=== PATIENT | male | born 1995 | race Two or more races ===

== ENCOUNTER 2025-03-26 13:52 | Inpatient (IN) ==
[2025-03-26] MEDS: TICAGRELOR 90 MG TAB ONE (14:17)
[2025-03-26] MEDS: HEPARIN (PORCINE) 1000 UNIT/ML 10 ML (CATH LAB USE ONLY) ONE (14:18)
--- NOTE | 2025-03-26 14:18 | Emergency Department Note ---
Impression & Plan ST elevation, Syncope ED Provider Note NAME: CHAD [id number] YILIZ AGE: 29 SEX: M : 1995 ARRIVES VIA: Ambulance INFORMANT: Patient ED PROVIDER(S): Ren Nunes MD CHIEF COMPLAINT: Syncope, ST elevation, heart alert PLAN: Disposition: Admit MEDICAL DECISION MAKING: The patient is a 29-year-old Hong Konger gentleman, in custody at [facility] who presents to the emergency department via EMS as a heart alert in the setting of having a episode of syncope when he was playing football and had an episode of syncope with exertion which was not related to physical contact/trauma. Patient was brought to the [facility] and was noted to be pale and diaphoretic. EKG was performed and demonstrated ST elevations in V2 and V3. Following my discussion with EMS crew on medical command heart alert was activated given ST elevations on EKG and syncope and diaphoresis which may reflect chest pain equivalent as the patient did not report chest pain. Patient was given full dose aspirin prior to arrival. No prior medical history per report. Upon arrival to the emergency department the patient is pale, diaphoretic, fatigued appearing with heart in the 90s and blood pressure 140s/100s vital signs otherwise stable. History obtained via [employer] nursery helper. Patient denies chest pain at this time nor around when his episode of fainting occurred. EKG demonstrates ST elevation in leads V2-V3. Chest x-ray negative for acute cardiopulmonary process per my preliminary independent interpretation. WBC and platelets within normal limits. H/H13.8/40.2 without prior for comparison. Chemistry without metabolic acidosis. Electrolytes and LFTs unremarkable. Initial high-sensitivity troponin 10.3, within normal limits. BNP within normal limits. Lipase is normal. TSH within normal limits. Of note, we have a thorough discussion with the patient using iPad Hong [place]er nursery helper. Understandably the patient was initially unclear as to what the concern was and what the plan would be. We explained in detail with the concerns regarding his EKG and the concern for AL. He initially had declined proceeding with heart catheterization as he indicated he wanted to speak to his family. However per guards the [facility] policy was that outside contact was not permitted. While guards made effort to clarify this and see if exception could be made given the circumstances we discussed further with the patient risks of delaying the Adventure Education Teacher procedure. Ultimately the patient did agree to proceed and was able to express in his own words understanding of the concern and procedure to be performed. 5000 units of IV heparin and 180 mg of ticagrelor administered. Dr. Boyle, interventional cardiology, to assess the patient in the Adventure Education Teacher. Case was discussed with Dr. Oscar, [facility] admitting resident, with Dr. Shelley Leos, [facility] hospitalist. Further management per admitting team. Triage Nursing notes reviewed and agree them. Prior/external medical records reviewed Vital Signs: reviewed Differential diagnosis: Vasovagal event, dehydration, infection, hypoglycemia, electrolyte abnormalities, cardiac sources, intracerebral event, pulmonary embolism, seizure, toxicologic, neurologic, as well as other pathologies. ER treatment provided: See below. Diagnostics interpreted by me: ECG: Normal sinus rhythm, 96 bpm, no ectopy, ST elevation in leads V2-V3, question of Brugada pattern, QTc 416, QRS 86. Cardiac Monitoring: An order for continuous cardiac monitoring was placed and demonstrated normal sinus rhythm, 96 bpm, no ectopy. Laboratory studies: See below Imaging studies: See below Consultation(s): Dr. Boyle, interventional cardiology [facility] admitting resident, with Dr. Shelley Leos, [facility] hospitalist. HPI: Per MDM. ROS: See above HPI for pertinent positives & negatives. A total of 10 systems reviewed and were otherwise negative. VITALS:See Below PHYSICAL EXAMINATION: GENERAL: Awake, alert, fatigued/uncomfortable-appearing, diaphoretic in no distress HENT: Normocephalic, atraumatic. Oropharynx with dry mucous membranes and otherwise unremarkable. EYES: Normal conjunctiva. Sclera non-icteric. NECK: Supple. No nuchal rigidity. FROM. No JVD. RESPIRATORY: Clear to auscultation. CARDIAC: Regular rate, normal rhythm. No murmurs, rubs or gallops. Extremities warm and well perfused. Pulses equal. ABDOMEN: Soft, non-distended. No tenderness to palpation. No rebound or guarding. No masses. MUSCULOSKELETAL: Chest examination reveals no tenderness. The back is symmetrical on inspection without obvious abnormality. There is no CVA tenderness to palpation. No joint edema. LOWER EXTREMITIES: Calves are equal size bilaterally and non-tender. No edema. No discoloration. NEURO: Normal sensorium. No sensory or motor deficits noted. SKIN: No rash or jaundice noted. ED COURSE: Critical Care: I have personally spent greater than 35 minutes of critical care time in the direct management of this patient. This includes bedside care, interpretation of diagnostic studies, and testing, discussion with consultants, patient, and family members, and other required patient management activities. This 35 minutes is in excess of all separately billable procedures. Ren Nunes MD Past Med/Surg History Problem List (Updated 03/27/25 @ 02:37 by Ren Nunes MD) Syncope (Acute) ST elevation (Acute) Social History Smoking Status: Former smoker Tobacco Type: Cigarettes Smoking End Date: 2 months; Hx Alcohol Use: Yes Hx Substance Use: No Preferred Language: Hong Konger Assisted Living Director Required: Yes Beliefs That Will Affect Care: Cultural Cultural Beliefs: no pork products Current Living Situation: Other Current Living Situation Comment: Custodial[facility] Other Information That Helps Us Care for You: No Feels Safe at Home: Yes Safety Concerns: Feels Safe At This Time Assistive Devices: None Results & Data (ED) Vital Signs Vital Signs - 24 hr 03/26/25 13:53 03/26/25 13:53 03/26/25 13:59 Pulse Rate 97 H 95 H Pulse Rate [Right Finger] Pulse Rhythm [Right Finger] Pulse Strength [Right Finger] Respiratory Rate 16 Respiratory Effort / Characteristics Respiratory Depth Respiratory Pattern Blood Pressure 148/103 H Blood Pressure [Right Arm] Blood Pressure Mean 118 Blood Pressure Mean [Right Arm] Blood Pressure Position [Right Arm] Pulse Oximetry Oxygen Delivery Method Room Air Nasal Cannula Oxygen Flow Rate 2 Sepsis Recent Fever Within 48 Hours No Sepsis New/Unexplained Change in Mental Status N/A Sepsis Action Taken by Nursing No Action Required 03/26/25 14:04 03/26/25 14:21 03/26/25 15:10 Pulse Rate Pulse Rate [Right Finger] 99 H 83 Pulse Rhythm [Right Finger] Regular Pulse Strength [Right Finger] Normal Respiratory Rate 18 18 Respiratory Effort / Characteristics Non-Labored Spontaneous Non-Labored Spontaneous Respiratory Depth Normal Normal Respiratory Pattern Regular Blood Pressure Blood Pressure [Right Arm] 153/105 H 135/87 Blood Pressure Mean Blood Pressure Mean [Right Arm] 121 103 Blood Pressure Position [Right Arm] Semi-fowlers Pulse Oximetry 100 96 Oxygen Delivery Method Room Air Room Air Room Air Oxygen Flow Rate Sepsis Recent Fever Within 48 Hours Sepsis New/Unexplained Change in Mental Status Sepsis Action Taken by Nursing 03/26/25 15:15 03/26/25 15:30 03/26/25 15:45 Pulse Rate Pulse Rate [Right Finger] 84 74 73 Pulse Rhythm [Right Finger] Regular Regular Regular Pulse Strength [Right Finger] Normal Normal Normal Respiratory Rate 18 18 18 Respiratory Effort / Characteristics Non-Labored Spontaneous Non-Labored Spontaneous Non-Labored Spontaneous Respiratory Depth Normal Normal Normal Respiratory Pattern Regular Regular Regular Blood Pressure Blood Pressure [Right Arm] 131/82 120/81 117/73 Blood Pressure Mean Blood Pressure Mean [Right Arm] 98 94 87 Blood Pressure Position [Right Arm] Semi-fowlers Semi-fowlers Semi-fowlers Pulse Oximetry 95 94 93 Oxygen Delivery Method Room Air Room Air Room Air Oxygen Flow Rate Sepsis Recent Fever Within 48 Hours Sepsis New/Unexplained Change in Mental Status Sepsis Action Taken by Nursing Laboratory Data Attestation: I reviewed the patient's lab results. 03/26/25 14:11 03/26/25 14:11 Lab Results 03/26/25 03/26/25 Range/Units 14:11 14:14 WBC 8.97 (4.8-10.8) K/ul RBC 4.77 (4.70-6.10) M/uL Hgb 13.8 L (14.0-18.0) g/dl POC Hgb 13.3 L (14.0-18.0) g/dl Hct 40.2 L (42.0-52.0) % POC Hct 39 L (42-52) % MCV 84.3 (80.0-100.0) fL MCH 28.9 (25.0-34.0) pg MCHC 34.3 (32.0-36.0) g/dL RDW Std Deviation 36.9 (36.4-46.3) fL RDW Coeff of Josefina 12.1 (11.5-14.5) % Plt Count 228 (130-400) K/uL MPV 8.8 L (9.4-12.4) fL Immature Gran % (Auto) 0.3 % Neut % (Auto) 71.2 % Lymph % (Auto) 18.5 % [place] % (Auto) 8.6 % Eos % (Auto) 1.0 % Baso % (Auto) 0.4 % Neut # (Auto) 6.38 (1.40-6.50) K/uL Lymph # (Auto) 1.66 (1.20-3.40) K/uL [place] # (Auto) 0.77 H (0.11-0.59) K/uL Eos # (Auto) 0.09 (0.00-0.50) K/uL Baso # (Auto) 0.04 (0.00-0.20) K/uL Immature Gran # (Auto) 0.03 (0.01-0.20) K/uL PT 10.8 (9.0-12.0) Seconds INR 1.0 (0.9-1.1) APTT 24 (21-31) Seconds PTT Ratio 0.9 POC Sodium 141 (135-144) mmol/L Sodium 139 (136-145) mmol/L POC Potassium 3.9 (3.3-5.0) mmol/L Potassium 3.9 (3.5-5.1) mmol/L POC Chloride 105 (101-112) mmol/L Chloride 108 H (98-107) mmol/L Carbon Dioxide 25 (21-32) mmol/L POC Total CO2 22 L (24-31) mmol/L Anion Gap 6 (3-11) POC Anion Gap 18.0 (16-25) mmol/L POC BUN 13 (7-18) mg/dl BUN 13 (6-23) mg/dl Creatinine 0.98 (0.6-1.4) mg/dl POC Creatinine 1.1 (0.6-1.3) mg/dl Est Cr Clr Drug Dosing Not Reportable eGFR 106.38 BUN/Creatinine Ratio 13.3 (10-20) Glucose 81 (70-99(Fasting)) mg/dl POC Glucose (other) 82 (70-99) mg/dl Calcium 8.9 (8.6-10.3) mg/dl POC Ioniz Calcium Katelynn 1.16 (1.12-1.32) mmol/l Magnesium 1.8 (1.7-2.4) mg/dl Total Bilirubin 0.5 (0.2-1.0) mg/dl AST 20 (13-39) U/L ALT 19 (7-52) U/L Alkaline Phosphatase 49 (34-104) U/L Total Creatine Kinase 90 (30-223) U/L Troponin I High Sens 10.3 (0-20) pg/ml B-Natriuretic Peptide 25 (0-100) pg/ml Total Protein 7.2 (6.0-8.3) gm/dl Albumin 4.3 (3.4-5.0) gm/dl Globulin 2.9 (2.5-4.0) gm/dl Albumin/Globulin Ratio 1.5 (0.9-2) Lipase 18 (11-82) U/L TSH 1.447 (0.300-4.500) uIu/ml Administered Medications Discontinued Medications Atropine Sulfate (Atropine Sulfate 0.1 Mg/Ml 10ml Syr) Confirm Administered Dose 1 mg IV .STK-MED ONE Stop: 03/26/25 14:10 Last Admin: 03/26/25 14:58 Dose: Not Given Documented By: LIEN Diphenhydramine HCl (Diphenhydramine 50 Mg/Ml Vial) Confirm Administered Dose 50 mg .ROUTE .STK-MED ONE Stop: 03/26/25 14:39 Last Admin: 03/26/25 14:58 Dose: 25 mg Documented By: KATT Fentanyl Citrate (Fentanyl Citrate Pf 100 Mcg/2 Ml Vial) Confirm Administered Dose 100 mcg .ROUTE .STK-MED ONE Stop: 03/26/25 13:51 Last Increment: 03/26/25 14:56 Dose: 75 mcg Documented By: KATT Heparin Sodium (Porcine) (Heparin (Porcine) 1000 Unit/Ml 10 Ml ([employer] Teacher Use Only)) Confirm Administered Dose 10,000 units .ROUTE .STK-MED ONE Stop: 03/26/25 13:51 Last Admin: 03/26/25 14:59 Dose: Not Given Documented By: LIEN Heparin Sodium (Porcine) (Heparin Sod (Porcine) 1000 Unit/Ml) Confirm Administered Dose 1,000 units .ROUTE .STK-MED ONE Stop: 03/26/25 14:17 Last Admin: 03/26/25 17:22 Dose: Not Given Documented By: CINDY Heparin Sodium (Porcine) (Heparin Sod (Porcine) 1000 Unit/Ml) 5,000 units IV NOW ONE Stop: 03/26/25 14:16 Last Admin: 03/26/25 14:20 Dose: 5,000 units Documented By: NRB Co-signed By: PHIL Heparin Sodium/Sodium Chloride (Heparin In Nss Infusion 1000 Unit/500 Ml (2 U/Ml) Bag) Confirm Administered Dose 3,000 units IV .STK-MED ONE Stop: 03/26/25 13:51 Last Admin: 03/26/25 14:57 Dose: 3,000 units Documented By: KATT Sodium Chloride (Nss) 500 mls @ 125 mls/hr IV .Q4H CRISTOBAL Stop: 03/26/25 17:44 Last Infusion: 03/26/25 21:26 Dose: Infused Documented By: Admin: 03/26/25 17:21 Dose: 125 mls/hr Documented By: CINDY Ioversol (Optiray 350) Confirm Administered Dose 1 ml .ROUTE .STK-MED ONE Stop: 03/26/25 13:52 Last Admin: 03/26/25 14:58 Dose: 60 ml Documented By: KATT Midazolam HCl (Midazolam Hcl 1 Mg/Ml 2ml Vial) Confirm Administered Dose 2 mg .ROUTE .STK-MED ONE Stop: 03/26/25 13:50 Last Admin: 03/26/25 14:56 Dose: 3 mg Documented By: KATT Midazolam HCl (Midazolam Hcl 1 Mg/Ml 2ml Vial) Confirm Administered Dose 2 mg .ROUTE .STK-MED ONE Stop: 03/26/25 14:37 Last Admin: 03/26/25 14:58 Dose: Not Given Documented By: LIEN Nicardipine HCl (Nicardipine 2,000 Mcg/20 Ml Syr) Confirm Administered Dose 2,000 mcg .ROUTE .STK-MED ONE Stop: 03/26/25 13:52 Last Admin: 03/26/25 14:57 Dose: 2,000 mcg Documented By: KATT Nitroglycerin/Dextrose (Nitroglycerin/D5w 100mcg/Ml 20ml Syr) Confirm Administered Dose 2,000 mcg .ROUTE .STK-MED ONE Stop: 03/26/25 13:51 Last Admin: 03/26/25 14:57 Dose: 2,000 mcg Documented By: KATT Ticagrelor (Ticagrelor 90 Mg Tab) Confirm Administered Dose 180 mg .ROUTE .STK- MED ONE Stop: 03/26/25 14:16 Last Admin: 03/26/25 14:17 Dose: 180 mg Documented By: DEEPIKA Ticagrelor (Ticagrelor 90 Mg Tab) 180 mg PO ONE ONE Stop: 03/26/25 14:16 Last Admin: 03/26/25 14:23 Dose: Not Given Documented By: NRB Imaging Data Radiologist's Impression: Chest X-Ray 03/26/25 13:45 XR chest 1V portable CLINICAL HISTORY: Chest pain, nonspecific. COMPARISON STUDY: No previous studies for comparison. FINDINGS: Lung volumes are normal. Lungs are clear. There is no pneumothorax or pleural effusion. Cardiac size is normal. Mediastinal contours are normal. There is no evidence for pulmonary edema. IMPRESSION: No acute cardiopulmonary findings. ACT 112: Negative or not required by law. Electronically signed by: Tray Muller M.D. 03/26/2025 2:27 PM Discharge Plan Visit Data Chief Complaint: Heart Alert Stated Complaint: HEART ALERT ED Provider: Ren Nunes Discharge Problem: ST elevation, Syncope Patient Disposition: Admitted As Inpatient Condition: Critical Discharge Instructions Interventions: ED Discharge Assessment Last Done: 03/26/25 14:24 Discharge Problem: Syncope Qualifiers: Syncope type: unspecified Qualified Code(s): R55 - Syncope and collapse
[2025-03-26] MEDS: HEPARIN SOD (PORCINE) 1000 UNIT/ML IV ONE (14:20)
[2025-03-26 14:22] LABS: Hematocrit (blood only) 40.2 % (42.0-52.0); Hemoglobin 13.8 g/dl (14.0-18.0); Immature Granulocytes # (auto) 0.03 K/uL (0.01-0.20); Immature Granulocytes % (auto) 0.3 %; Mean Corpuscular Hemoglobin 28.9 pg (25.0-34.0); Mean Corpuscular Volume 84.3 fL (80.0-100.0); Platelet Count 228 K/uL (130-400); RDW Standard Deviation 36.9 fL (36.4-46.3); Red Blood Count 4.77 M/uL (4.70-6.10); White Blood Count 8.97 K/ul (4.8-10.8)
[2025-03-26] MEDS: TICAGRELOR 90 MG TAB PO ONE (14:23)
--- NOTE | 2025-03-26 14:28 | XRay Report ---
XR chest 1V portable CLINICAL HISTORY: Chest pain, nonspecific. COMPARISON STUDY: No previous studies for comparison. FINDINGS: Lung volumes are normal. Lungs are clear. There is no pneumothorax or pleural effusion. Car diac size is normal. Mediastinal contours are normal. There is no evidence for pulmonary edema. IMPRESSION: No acute cardiopulmonary findings. ACT 112: Negative or not required by law. Electronically signed by: Tray Muller M.D. 03/26/2025 2:27 PM
--- NOTE | 2025-03-26 14:33 | History & Physical Report ---
Date of Service March 26, 2025 Assessment & Plan (1) ST elevation: (2) Syncope: Plan Pt is a 29 yo male with no significant past med hx who presents from [facility] on 03/26 for an episode of syncope with activity and found to have ST elevations on EKG. #ST elevations #Syncopal episode - EKG in the ED consistent with EKG from facility after syncopal episode showing ST elevations, pt denies ever feeling chest pain - heart code was called; pt was taken to [facility]/26 2:30pm, no significant occlusions noted - question Brugada, given V1-3 elevations and syncopal episode - cardio consulted; pending EP evaluation - will defer starting antiarrhythmics at this time as he has been sinus rhythm since being here, pending cards - TSH wnl - echo pending VTE: low risk (Bianka score 0) ambulate as tolerated Pt is full code on admission. History of Present Illness Chief Complaint: STEMI Primary Care Provider: NO PCP Pt is a 29 yo male with no significant past med hx who presents from [facility] on 03/26 for an episode of syncope with activity and found to have ST elevations on EKG. Pt seen briefly before cath and once again after cath procedure. Norwegian voice balloon pilot used, ID code [id number]. Pt is currently detained by ICE. Pt states this started initially in December. He states on January 09 he had an episode of feelin g hot, sweaty, and like he could pass out. This happened again on February 05 and March 17. He states these episodes started in times of legal stress he has endured. He moved here with his 3 kids for a better life and has been very frustrated with the system. He states that today the episode was different. He was playing football(soccer) outside and when he went inside he started to get sweaty and hot and then passed out. No chest pain or SOB before or after. He denies any prior hx of an actual syncopal event. He denies any family hx of cardiac issues that he knows about. In the ED he was complaining of being cold and shivering but no other symptoms. After cath, he appeared more physically comfortable but he is emotionally overwhelmed. He states he would feel better if he could just talk to his family and hear his kids again. Past Med/Surg History Problem List Syncope (Acute) ST elevation (Acute) Social History Smoking Status: Former smoker Tobacco Type: Cigarettes Smoking End Date: 2 months; Hx Alcohol Use: Yes Hx Substance Use: No Preferred Language: Norwegian Yolk Spray Drier Required: Yes Beliefs That Will Affect Care: Cultural Cultural Beliefs: no pork products Current Living Situation: Other Current Living Situation Comment: Longterm-[facility] Other Information That Helps Us Care for You: No Feels Safe at Home: Yes Safety Concerns: Feels Safe At This Time Assistive Devices: None Review of Systems Review of Systems: Per HPI. Physical Exam Physical Exam: General: Alert and oriented, no acute distress, tearful HEENT: Normocephalic, moist oral mucosa, Resp: No increased resp effort, no resp distress GI: Nondistended Skin: Warm, pink, dry, Results & Data Results & Data Vital Signs (Past 12 Hours) Vital Signs Pulse Pulse Resp BP BP Pulse Ox O2 Del Method 03/26/25 14:21 99 H 18 153/105 H 100 Room Air 03/26/25 14:04 Room Air 03/26/25 13:59 95 H 03/26/25 13:53 Nasal Cannula 03/26/25 13:53 97 H 16 148/103 H Room Air O2 Flow Rate 03/26/25 14:21 03/26/25 14:04 03/26/25 13:59 03/26/25 13:53 2 03/26/25 13:53 Supervising Physician Co-Signing Physician Notes I personally examined the patient and verified romo points of history and exam, discussed case, and agree with decision making and plan documented by Dr. Oscar. Norwegian balloon pilot #[id number] utilized. Patient is 29 yr old male with no known past medical history with intermittent cardiac symptoms presenting during times of stress prior to admission. Had [facility]opal [facility] at [facility] facility today. Patient denies cardiopulmonary symptoms at present. Exam with lungs clear b/l to auscultation, regular rate and rhythm, no acute distress. VSS. Denies family history of cardiac disease. Cardiac catheterization unrevealing today. Cardiology consulted. Monitor on telemetry. Resident Activity Tracking Resident Involvement: Resident Care Provided Care Provided: Adult [facility] Medicine
[2025-03-26 14:40] LABS: Alanine Aminotransferase 19 U/L (7-52); Albumin Globulin Ratio 1.5 (0.9-2); Alkaline Phosphatase 49 U/L (34-104); Anion Gap 6 (3-11); Bilirubin,Total 0.5 mg/dl (0.2-1.0); Blood Urea Nitrogen 13 mg/dl (6-23); Calcium 8.9 mg/dl (8.6-10.3); Carbon Dioxide 25 mmol/L (21-32); Chloride 108 mmol/L (98-107); Creatine Kinase 90 U/L (30-223); Globulin 2.9 gm/dl (2.5-4.0); Glucose 81 mg/dl (70-99(Fasting)); Lipase 18 U/L (11-82); Magnesium 1.8 mg/dl (1.7-2.4); Potassium 3.9 mmol/L (3.5-5.1); Sodium 139 mmol/L (136-145); Total Protein 7.2 gm/dl (6.0-8.3)
[2025-03-26 14:56] LABS: Thyroid Stimulating Hormone 1.447 uIu/ml (0.300-4.500)
[2025-03-26] MEDS: MIDAZOLAM HCL 1 MG/ML 2ML VIAL ONE ×2 (14:56→14:58)
[2025-03-26] MEDS: niCARdipine 2,000 MCG/20 ML SYR ONE (14:57)
[2025-03-26] MEDS: NITROGLYCERIN/D5W 100MCG/ML 20ML SYR ONE (14:57)
[2025-03-26] MEDS: OPTIRAY 350 ONE (14:58)
[2025-03-26] MEDS: ATROPINE SULFATE 0.1 MG/ML 10ML SYR IV ONE (14:58)
[2025-03-26] MEDS: diphenhydrAMINE 50 MG/ML VIAL ONE (14:58)
--- NOTE | 2025-03-26 15:01 | Pre Anesthesia Assessment ---
Date of Service March 26, 2025 Pre Sedation Assessment Vital Signs Pulse Pulse Resp BP BP Pulse Ox O2 Del Method 03/26/25 14:21 99 H 18 153/105 H 100 Room Air 03/26/25 14:04 Room Air 03/26/25 13:59 95 H 03/26/25 13:53 Nasal Cannula 03/26/25 13:53 97 H 16 148/103 H Room Air O2 Flow Rate 03/26/25 14:21 03/26/25 14:04 03/26/25 13:59 03/26/25 13:53 2 03/26/25 13:53 Cardiovascular RRR, no murmur, no edema Respiratory normal respiratory effort, lungs clear to auscultation Pre-Sedation Airway Assessment Smoking Status: Unknown if ever smoked mallampati 2 ASA 4 Notes The planned sedation has been discussed with the patient. Informed Consent was obtained. I have identified the patient, determined the appropriateness of sedation and have assessed the patient immediately prior to the procedure. All medicine(s) and interventions are by my order.
--- NOTE | 2025-03-26 15:03 | Post Anesthesia Assessment ---
Date of Service March 26, 2025 Post Sedation Assessment Vital Signs Pulse Pulse Resp BP BP Pulse Ox O2 Del Method 03/26/25 14:21 99 H 18 153/105 H 100 Room Air 03/26/25 14:04 Room Air 03/26/25 13:59 95 H 03/26/25 13:53 Nasal Cannula 03/26/25 13:53 97 H 16 148/103 H Room Air O2 Flow Rate 03/26/25 14:21 03/26/25 14:04 03/26/25 13:59 03/26/25 13:53 2 03/26/25 13:53 Recovery Score Activity: Moves 4 extremities Respiration: Deep Breath/Cough Circulation: +/-20% PreAnes Value Consciousness: Fully Awake Oxygen Saturation: > 92% On Room Air Discharge Sedation Level of Care: Fast Track Phase II Post Sedation Plan On clinical assessment, the patient appears to have tolerated the sedation without complications. Patient is recovering as anticipated. Patient will continue to be monitored by nursing and may be discharged when sedation discharge criteria are met per below protocol. Upon Completions of procedure up to 15 minutes continue every 5 minute vital signs and the P.A.R. score; then discharge to a Phase I or Fast Track to Phase II per the following guidelines: * Discharge Patient to appropriate Phase II area if PAR is 8 or greater or return to pre- procedure baseline. The post - procedure orders will be as directed. * If PAR score is less than 8 or not return to pre-procedure baseline then patient will follow Phase I monitoring till PAR is reached for Phase II. The Phase I may be done in procedure room or may call to secure a Phase I area. * If naloxone or flumazenil are used for reversal, hold in Phase I for con tinued monitoring from when last reversal dose was given for a minimum of 60 minutes or longer pending the nurse and/or physician discretion of patient condition before discharge to Phase II. Please call the Sedation Physician to re-evaluate and complete post-note for discharge to Phase II area. Do NOT discharge from procedure sedation or Phase 1 until post- sedation evaluation note is complete by procedure /sedation MD Sedation Discharge Instructions to be given to the patient at discharge to home. [facility] Procedure Codes (Charges) Indication for Procedure Indication for procedure: STEMI Sedation/Anesthesia Procedure 1: Sedation/Anesthesia: 21058 Mod Sedation by the same physician;Init15 Min Child Age 5 & Up (initial 15 min. start 1436, end 1454)
[2025-03-26 15:08] LABS: INR 1.0 (0.9-1.1); Partial Thromboplastin Time 24 Seconds (21-31); Prothrombin Time 10.8 Seconds (9.0-12.0)
--- NOTE | 2025-03-26 15:26 | Cardiac Catheterization ---
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 Cardiac Status Clinical evaluation leading to the procedure CAD Presenation: STEMI Anginal Classification: CCS IV Heart Failure: No Cardiogenic Shock within 24 Hours: No Cardiac Arrest within 24 Hours: No Imaging Studies Past 6 Months: No Coronary Anatomy Dominant: Co-Dominant Left Main (% Stenosis): Normal LAD (% Stenosis): Normal D1 (% Stenosis): Normal Circumflex (% Stenosis): Normal OM1 (% Stenosis): Normal OM2 (% Stenosis): Normal OM3 (% Stenosis): Normal L PL1 (% Stenosis): Normal L PDA (% Stenosis): Normal RCA (% Stenosis): Normal R PDA (% Stenosis): Normal Left Ventricular Angiography EF (%): 65% Diagnostic Physicians Name: Les Boyle MD, PhD Closure Device Percutaneous Entry Location: Radial Closure Device: Radial Band Recommendations: Medical Therapy and/or Counseling Cardiac Cath Procedure Full Procedure Date March 26, 2025 Pre-Procedure Diagnosis Pre-Procedure Diagnosis: STEMI and Cardiothoracic Symptom (syncope) AUC Score AUC Score: 09 Post-Procedure Diagnosis Post-Procedure Diagnosis: Normal Coronary Arteries, Normal LV Systolic Function and Normal Intracardiac Pressures Procedure(s) Performed Procedure(s) Performed: Coronary Angiography, Left Heart Cath, LV Angiography and Ultrasound Guided Vascular Access Plexiglas Former Les Boyle MD, PhD Estimated Blood Loss Estimated Blood Loss: 5cc Medication(s) Medication(s): Diphenhydramine, Fentanyl, Lidocaine 1%, Nicardipine, Nitroglycerin and Versed Summary of Findings Brief description: Patient was brought to the cardiac catheterization suite where he was shaved and prepped in a sterile fashion. Sedated using IV Versed, fentanyl, and Benadryl. Soft tissues of right wrist were anesthetized using 3 mL of 1% Xylocaine. Using the ultrasound for guidance, the right radial artery was accessed and a 6 Cymro radial artery glide sheath was placed. Patient had already received anticoagulation in the emergency department. He received intra-arterial nicardipine and nitroglycerin through the radial sheath. All catheters were advanced and exchanged over a 0.035 J-tip wire. Left coronary angiography in orthogonal views with a 5 Cymro JL 4 diagnostic catheter. Right coronary angiography in orthogonal views with a 5 Cymro JR4 diagnostic catheter. Left heart cath and left ventriculogram were performed with a 5 Cymro angled pigtail catheter. Diagnostic catheters were removed. Radial artery sheath was removed. Hemostasis was obtained using a TR band. Patient was hemodynamically stable and asymptomatic. He was returned to the recovery area. This ended the case. Coronary angiography findings: KTE-wjyyt-fgezzdw vessel bifurcating into LAD and left circumflex. No angiographically evident disease. OWC-svpkm-xolkhyw and gives a large branching first diagonal and at the same level of a large septal. The mid to early distal LAD is intramyocardial in course. There is no angiographically evident disease in the LAD or its branches. LCx-this is large caliber and codominant. Travels in the AV groove gives a medium to large caliber high arising OM1. Then a very small OM 2 right before it gives a very large caliber multi branching OM 3. The AV groove circumflex then becomes smaller in caliber where it terminates in a medium caliber PDA. No angiographically evident disease in the circumflex or its branches. POI-lnwpm-baekkuh vessel which is codominant. Gives 2 large marginal branches and distally becomes a medium to large caliber PDA and there is a small posterolateral branch. No angiographically significant disease in the RCA or its branches. Left ventriculogram: LVEF-65%. No significant mitral regurgitation Normal wall motion Summary: 1. Normal epicardial coronary arteries 2. Normal LV function. No significant transaortic valve gradient or mitral regurgitation. 3. Continue workup for non-ACS etiology of ST elevations (Brugada syndrome?) Hemodynamics Rest Ao:: 105/86 mmHg Final Ao: 114/91 mmHg LV: 111/2 mmHg, LVEDP 8 mmHg Recommendations Recommendations: Medical Therapy and/or Counseling Radiation Exposure (mGy) 444 mGy, fluoroscopy time 2.5 minutes Contrast (mls) 60 Anesthesia 3 Versed, 75 fentanyl, 25 Benadryl. 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 Any exceptions are noted below. [facility] Card Cath Procedure Codes Cardiac Catheterization Procedure 1: Cardiovascular Cath Procedures: 05613 Coronaries and LHC (+/-LV) Therapeutic Services & Ancillary Procedure 1: Cardiovascular Tx and Anc Procedures: 17899 Ultrasonic Guidance Vascular Access Moderate Sedation Procedure 1: Sedation/Anesthesia: 17982 Mod Sedation by the same physician;Init15 Min Child Age 5 & Up (Initial 15 minutes. Start 1436, end 1454) PG Care Time/CCT Total # of Minutes Spent Total Time Spent with Patient: Total time spent is greater than 50% in coordination of care (as documented) at patient's floor/unit and/or counseling patient:
--- NOTE | 2025-03-26 15:43 | Electrocardiogram Report ---
Test Reason : Blood Pressure : */* mmHG Vent. Rate : 96 BPM Atrial Rate : 96 BPM P-R Int : 154 ms QRS Dur : 86 ms QT Int : 330 ms P-R-T Axes : -25 -6 -19 degrees QTcB Int : 416 ms Normal sinus rhythm possible Inferior infarct , age undetermined Incomplete right bundle branch block vs. Brugada pattern Abnormal ECG No previous ECGs available Confirmed by Billy Pedraza ([id number]) on 03/26/2025 3:43:18 PM Referred By: Confirmed By: Billy Pedraza
[2025-03-26] MEDS ORDERED: NITROGLYCERIN SL 0.4 MG/TAB TAB SL PRN (16:07)
--- NOTE | 2025-03-26 16:20 | Cardiology Consultation ---
Date of Consultation March 26, 2025 Assessment & Plan (1) ST elevation: The EKG actually appears similar to Brugada syndrome. Right bundloid appearance in the anterior septal leads plus saddleback appearance of the ST segment in V2 and V3. Normal coronaries. We need to get a better EKG when he is resting. The post-cath orders have been placed for usual diagnostic coronary angiography. We will obtain an echocardiogram to better evaluate wall motion, etc. (2) Syncope: Given the EKG appearance I would be most suspicious this represents arrhythmia from potential Brugada syndrome. If we could get information regarding family history that may be helpful. Will speak with EP regarding additional workup and management strategies given the information that we have available at this time. History of Present Illness Reason for Consultation: ST elevation [place] Syncope Attending Physician: Les Boyle MD, PhD History of Present Illness 29-year-old gentleman from [place] (speaks no Japanese) who is currently incarcerated. Had a syncopal episode without warning while he was playing soccer. No chest pain or shortness of breath. I was called to see him in the emergency department for reported ST elevation [place]. Patient was taken emergently to the cardiac catheterization suite where coronary angiography revealed normal coronaries, left heart cath demonstrating normal pressures and pressures and LVEDP with normal EF. Patient had no chest discomfort. He did have frequent ectopy with the pigtail catheter in his left heart. He is now admitted for further workup and management. There was panel installer service being used while I had him in the [facility] Services. We communicated directly about what was going on with the cath but the patient was sedated as well. I was unable to get further information from him. Patient History Social History Smoking Status: Unknown if ever smoked Feels Safe at Home: Yes Review of Systems Review of Systems: Unobtainable except as per HPI. Physical Exam Constitutional: WD/WN, vitals as above Neck: No JVD Respiratory: Clear to auscultation bilaterally. No wheezing, rhonchi, or rales. Good air movement. Cardiovascular: Regular rate and rhythm. Occasional ectopy. No gallops, rubs, or murmurs appreciated. No edema. Musculoskeletal: no cyanosis or clubbing, extremities motor strength 5/5 Neurologic: Grossly intact Results & Data Vital Signs (Past 12 Hours) Vital Signs Pulse Pulse Resp BP BP Pulse Ox O2 Del Method 03/26/25 15:45 73 18 117/73 93 Room Air 03/26/25 15:30 74 18 120/81 94 Room Air 03/26/25 15:15 84 18 131/82 95 Room Air 03/26/25 15:10 83 18 135/87 96 Room Air 03/26/25 14:21 99 H 18 153/105 H 100 Room Air 03/26/25 14:04 Room Air 03/26/25 13:59 95 H 03/26/25 13:53 Nasal Cannula 03/26/25 13:53 97 H 16 148/103 H Room Air O2 Flow Rate 03/26/25 15:45 03/26/25 15:30 03/26/25 15:15 03/26/25 15:10 03/26/25 14:21 03/26/25 14:04 03/26/25 13:59 03/26/25 13:53 2 03/26/25 13:53 PG Care Time/CCT Total # of Minutes Spent Total Time Spent with Patient: Total time spent is greater than 50% in coordination of care (as documented) at patient's floor/unit and/or counseling patient: I spent a total of 45 minutes critical care time in the initial evaluation of the patient, review of the available records including the EKGs from the transferring facility, limited discussion with the patient and the gambreler, discussion with the care team in the emergency department as well as the Director Of Volunteer Services team, formulation and implementation of a plan of care and all associated d ocumentation. This time is exclusive of the time spent for the procedure. Coding Level of Care Code 81923 CRITICAL CARE 1ST 30-74M Diagnoses ST elevation R94.31 Syncope R55 Time Spent (min) 45
[2025-03-26] MEDS: SODIUM CHLORIDE 0.9% 500 ML IV SCH (17:21)
[2025-03-26] MEDS: HEPARIN SOD (PORCINE) 1000 UNIT/ML ONE (17:22)
[2025-03-27 06:26] LABS: Hematocrit (blood only) 35.9 % (42.0-52.0); Hemoglobin 12.7 g/dl (14.0-18.0); Immature Granulocytes # (auto) 0.02 K/uL (0.01-0.20); Immature Granulocytes % (auto) 0.3 %; Mean Corpuscular Hemoglobin 30.0 pg (25.0-34.0); Mean Corpuscular Volume 84.9 fL (80.0-100.0); Platelet Count 222 K/uL (130-400); RDW Standard Deviation 36.5 fL (36.4-46.3); Red Blood Count 4.23 M/uL (4.70-6.10); White Blood Count 6.98 K/ul (4.8-10.8)
[2025-03-27 06:54] LABS: Alanine Aminotransferase 18.0 U/L (7-52); Albumin Globulin Ratio 1.4 (0.9-2); Alkaline Phosphatase 39.0 U/L (34-104); Anion Gap 5.0 (3-11); Bilirubin,Total 0.7 mg/dl (0.2-1.0); Blood Urea Nitrogen 11.0 mg/dl (6-23); Calcium 8.9 mg/dl (8.6-10.3); Carbon Dioxide 27.0 mmol/L (21-32); Chloride 107.0 mmol/L (98-107); Creatinine Clr Calc Pharmacy 118.8 ml/min; Globulin 2.7 gm/dl (2.5-4.0); Glucose 82.0 mg/dl (70-99(Fasting)); Potassium 3.8 mmol/L (3.5-5.1); Sodium 139.0 mmol/L (136-145); Total Protein 6.6 gm/dl (6.0-8.3)
--- NOTE | 2025-03-27 07:49 | Hospitalist Progress Note ---
Date of Service March 27, 2025 Assessment & Plan (1) ST elevation: (2) Syncope: Plan Pt is a 29 yo male with no significant past med hx who presents from [facility] on 03/26 for an episode of syncope with activity, found to have ST segment elevation on ECG , cardiac cath yesterday was unremarkable and is admitted for suspected Brugada Syndrome. #Syncopal episode #Brugada Syndrome - EKG in the ED consistent with EKG from facility after syncopal episode showing ST elevations, pt denies ever feeling chest pain -Cardiac Catheterization done yesterday with no remarkable findings. -Cardiology Consultation. EKG appearance similar to the Brugada syndrome. EP consultation pending - Transthoracic echocardiogram with normal findings - TSH wnl VTE: low risk (Bianka score 0) ambulate as tolerated Pt is full code on admission. Admission and Anticipated Discharge Date Admission Date: March 26, 2025 Supervising Physician Co-Signing Physician Notes I personally examined the patient and verified romo points of history and exam, discussed case, and agree with decision making and plan documented by Dr. Hi. [place] aircraft painter apprentice utilized. Patient is 29 yr old male with no known past medical history on admission for syncope. Patient considering implantation of defibrillator per cardiology recs. No events on telemetry overnight. Echocardiogram pending. Subjective Patient reports doing well. Slept well overnight. No any overnight events, Denies any palpitation, light headedness , or feeling of passing out. Denies any new concerns. Talked to the patient using aircraft painter apprentice service. Review of Systems Review of Systems: Per HPI. Physical Exam Constitutional: WD/WN, vitals as above well developed; no acute distress Eyes: PERRL, conjunctivae normal, anicteric sclerae ENMT: external ear and nose normal, oropharynx normal Ears: no hearing impairment Neck: trachea midline, no thyromegaly trachea midline No JVD Respiratory: normal respiratory effort, lungs clear to auscultation normal respiratory effort and + respiratory distress; no labored breathing and no retractions Auscultation: lungs clear to auscultation bilaterally Clear to auscultation bilaterally. No wheezing, rhonchi, or rales. Good air movement. Cardiovascular: RRR, no murmur, no edema Rate/Rhythm: regular rate and regular rhythm Regular rate and rhythm. Occasional ectopy. No gallops, rubs, or murmurs appreciated. No edema. Chest (Breasts): normal inspection/palpation of breasts Chest: normal inspection of chest Musculoskeletal: no cyanosis or clubbing, extremities motor strength 5/5 Neurologic: Grossly intact Results & Data Results & Data Vital Signs (Past 12 Hours) Vital Signs Temp Pulse Pulse Resp BP Pulse Ox O2 Del Method 03/27/25 02:42 36.6 C 68 18 119/71 97 Room Air 03/26/25 22:22 36.6 C 67 18 119/74 97 Room Air 03/26/25 21:40 65 03/26/25 21:32 36.5 C 66 18 123/76 97 Room Air (2) Syncope Syncope type: unspecified Qualified Code(s): R55 - Syncope and collapse
--- NOTE | 2025-03-27 09:58 | Electrocardiogram Report ---
Test Reason : Blood Pressure : */* mmHG Vent. Rate : 70 BPM Atrial Rate : 70 BPM P-R Int : 140 ms QRS Dur : 90 ms QT Int : 368 ms P-R-T Axes : 31 69 57 degrees QTcB Int : 397 ms Normal sinus rhythm Brugada pattern, type 1 Abnormal ECG When compared with ECG of 26-Mar-2025 13:59, Criteria for Inferior infarct are no longer Present T wave inversion no longer evident in Inferior leads Confirmed by Billy Pedraza ([id number]) on 03/27/2025 9:57:32 AM Referred By: REFERRED SELF Confirmed By: Billy Pedraza
--- NOTE | 2025-03-27 10:51 | XCELERA ---
[id number]
--- NOTE | 2025-03-27 15:13 | Cardiology Consultation ---
Date of Consultation March 27, 2025 Assessment & Plan (1) Syncope: (2) Brugada syndrome: Plan 1. Syncope: Unknown etiology. However, very little prodrome. Afterwards he did not have symptoms consistent with high vagal tone. This occurred while at rest and not with exertion. Given his EKG findings there is a concern for arrhythmia. 2. Brugada syndrome: Patient appears to have a type I Brugada pattern on his EKG. While he does not have any history of heart disease or prior syncope, the current event is concerning. No obvious recordings to document ventricular fibrillation or polymorphic ventricular tachycardia. No resuscitation performed. However, given the EKG findings, absence of structural heart disease and syncope I did recommend an ICD as secondary prevention against sudden cardiac . I do not think there is a medical therapy that is advisable. It certainly possible that his syncope was not related to malignant ventricular arrhythmia, but there is no way of knowing this. We did discuss the option for extended monitoring to document ventricular arrhythmias. This would certainly solidify the diagnosis of Brugada syndrome. However, this does put him at risk of additional malignant ventricular arrhythmias that would be untreated. I did not recommend this option. He is understandably upset by the diagnosis and an inability to discuss it with his family members. He is hoping to be in touch with them to discuss his options prior to making a decision. If he elects to defer implantation of an ICD, outpatient monitoring should be considered. Additionally he should be aware that treating fevers with antipyretics promptly helps reduce episodes of ventricular arrhythmia in the setting of Brugada pattern. History of Present Illness Reason for Consultation: Syncope Requesting Physician: [place] Attending Physician: Shelley Lacey DO History of Present Illness The patient is a 29-year-old gentleman without a known history of cardiac disease who was brought to the emergency room yesterday from a skilled nursing facility for an episode of syncope. Patient was noted prior to admission to have an EKG concerning for myocardial injury. He was brought emergently to the catheterization suite where coronary angiography was performed. This did not reveal any obstructive coronary disease. He was subsequent admitted for observation. The patient does not speak significant Swedish. Today's interview was faci litated through a proprietary translation service. Patient states that he was exercising yesterday at his facility. Afterwards he was walking normally when he did experience some symptoms of palpitations and dizziness. He then recalls some tunnel vision and apparent syncope. After the episode he reported feeling well. He did not report any specific symptoms subsequent to the episode of syncope. He cannot recall any similar episodes in the past. He generally does not have dizziness or lightheadedness. He cannot recall symptoms of palpitations. No prior history of syncope. In general he states he is an active individual with no particular medical problems. He does not seek medical attention commonly as he has not had any symptoms. We discussed any family history of heart or medical disease. He cannot recall any specific medical problems and his 2 siblings or parents. No one seems to be prone to passing out. No history of sudden . Patient History Social History Smoking Status: Former smoker Tobacco Type: Cigarettes Smoking End Date: 2 months; Hx Alcohol Use: Yes Hx Substance Use: No Preferred Language: Welsh Communication Ability: Effective Communication Tools: Language Line Licensed Retail Supervisor, Facial Expression, Physical Gestures and Other Licensed Retail Supervisor Required: Yes Beliefs That Will Affect Care: Cultural Cultural Beliefs: no pork products Current Living Situation: Other Current Living Situation Comment: [facility] Other Information That Helps Us Care for You: No Feels Safe at Home: Yes Safety Concerns: Feels Safe At This Time Assistive Devices: None Review of Systems Review of Systems: Per HPI. No current symptoms. No discomfort at the right radial access site. Physical Exam Physical Exam: The patient is alert and oriented. Mood and affect appeared normal. He answered all questions appropriately. HEENT: Pupils are equal and reactive to light and accommodation. Extraocular movements are intact. The sclerae are anicteric. Neuro: Cranial nerves intact Lungs: Clear to auscultation bilaterally. He has good air movement without use of accessory muscles. No rales wheezes or rhonchi. Cardiac: Heart demonstrates a regular rate and rhythm. Normal S1 and S2. No murmurs on examination. Pulses: The patient has palpable radial pulses bilaterally that are equal in intensity Extremities: There was no evidence of hypoperfusion. There is no cyanosis or clubbing. There is no edema. Skin: I did not appreciate any rashes on examination today. Results & Data Vital Signs (Past 12 Hours) Vital Signs Temp Pulse Resp BP Pulse Ox O2 Del Method 03/27/25 12:01 36.4 C L 82 18 144/91 H 97 Room Air 03/27/25 08:00 36.3 C L 61 18 115/71 95 Room Air Laboratory Results Abnormal Lab Results 03/26/25 03/26/25 03/27/25 14:11 17:50 06:06 WBC 6.98 RBC 4.23 L Hgb 12.7 L Hct 35.9 L MCV 84.9 MCH 30.0 MCHC 35.4 RDW Std Deviation 36.5 RDW Coeff of Josefina 12.0 Plt Count 222 MPV 8.8 L Immature Gran % (Auto) 0.3 Neut % (Auto) 62.2 Lymph % (Auto) 27.1 [place]away % (Auto) 8.6 Eos % (Auto) 1.4 Baso % (Auto) 0.4 Neut # (Auto) 4.34 Lymph # (Auto) 1.89 [place] # (Auto) 0.60 H Eos # (Auto) 0.10 Baso # (Auto) 0.03 Immature Gran # (Auto) 0.02 PT 10.8 INR 1.0 APTT 24 PTT Ratio 0.9 Sodium 139 Potassium 3.8 Chloride 107 Carbon Dioxide 27 Anion Gap 5 BUN 11 Creatinine 0.79 Est Cr Clr Drug Dosing 118.8 eGFR 122.56 BUN/Creatinine Ratio 13.9 Glucose 82 Calcium 8.9 Total Bilirubin 0.7 AST 16 ALT 18 Alkaline Phosphatase 39 Total Protein 6.6 Albumin 3.9 Globulin 2.7 Albumin/Globulin Ratio 1.4 Nasal Screen MRSA (PCR) Negative Diagnostic Findings Echocardiogram 03/27/2025: Normal. Normal LV systolic function. No significant valvular heart disease. Cardiac catheterization 03/26/2025: Normal epicardial arteries. No significant valvular heart disease. PG Care Time/CCT Total # of Minutes Spent Total Time Spent with Patient: Total time spent is greater than 50% in coordination of care (as documented) at patient's floor/unit and/or counseling patient: Coding Level of Care Code 74359 IN/OBS CONSULT LVL 4,60M Diagnoses Syncope R55 Syncope type: unspecified Brugada syndrome I49.8 (1) Syncope Syncope type: unspecified Qualified Code(s): R55 - Syncope and collapse
--- NOTE | 2025-03-27 15:25 | Electrocardiogram Report ---
Test Reason : Blood Pressure : */* mmHG Vent. Rate : 64 BPM Atrial Rate : 64 BPM P-R Int : 134 ms QRS Dur : 92 ms QT Int : 380 ms P-R-T Axes : 37 66 48 degrees QTcB Int : 392 ms Normal sinus rhythm Brugada pattern, type 1 Abnormal ECG When compared with ECG of 26-Mar-2025 16:09, No significant change was found Confirmed by Billy Pedraza ([id number]) on 03/27/2025 3:25:40 PM Referred By: REFERRED SELF Confirmed By: Billy Pedraza
--- NOTE | 2025-03-28 11:15 | Hospitalist Progress Note ---
Date of Service March 28, 2025 Assessment & Plan (1) ST elevation: (2) Syncope: Plan Pt is a 29 yo male with no significant past med hx who presents from [facility] on 03/26 for an episode of syncope with activity, found to have ST segment elevation on ECG , cardiac cath yesterday was unremarkable and is admitted for suspected Brugada Syndrome. #Syncopal episode #Brugada Syndrome - EKG in the ED consistent with EKG from facility after syncopal episode showing ST elevations, pt denies ever feeling chest pain -Cardiac Catheterization done yesterday with no remarkable findings. -Cardiology Consultation. EKG appearance similar to the Brugada syndrome. 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 They are ok with getting him ICD - Transthoracic echocardiogram with normal findings - TSH wnl -No events on telemetry overnight VTE: low risk (Bianka score 0) ambulate as tolerated Pt is full code on admission. Admission and Anticipated Discharge Date Admission Date: March 26, 2025 Supervising Physician Co-Signing Physician Notes I personally examined the patient and verified romo points of history and exam, discussed case, and agree with decision making and plan documented by Dr. Hi. Yoruba ophthalmic surgical assistant utilized. No events on telemetry. Patient considering implanted defibrillator for Brugada syndrome. has been updated. Cardiology following. Subjective Patient reports doing well. Slept well overnight. No any overnight events, De nies any palpitation, light headedness , or feeling of passing out. Denies any new concerns. Talked to the patient using ophthalmic surgical assistant service. Review of Systems Review of Systems: Per HPI. Physical Exam Constitutional: WD/WN, vitals as above well developed; no acute distress Eyes: PERRL, conjunctivae normal, anicteric sclerae ENMT: external ear and nose normal, oropharynx normal Ears: no hearing impairment Neck: trachea midline, no thyromegaly trachea midline Respiratory: normal respiratory effort, lungs clear to auscultation normal respiratory effort and + respiratory distress; no labored breathing and no retractions Auscultation: lungs clear to auscultation bilaterally Cardiovascular: RRR, no murmur, no edema Rate/Rhythm: regular rate and regular rhythm Chest (Breasts): normal inspection/palpation of breasts Chest: normal inspection of chest Musculoskeletal: no cyanosis or clubbing, extremities motor strength 5/5 Results & Data Results & Data Vital Signs (Past 12 Hours) Vital Signs Temp Pulse Pulse Resp BP Pulse Ox O2 Del Method 03/28/25 08:27 64 03/28/25 07:15 36.5 C 63 16 117/73 94 Room Air 03/28/25 02:39 36.4 C L 78 18 119/70 95 Room Air (2) Syncope Syncope type: unspecified Qualified Code(s): R55 - Syncope and collapse
[2025-03-29 07:41] LABS: Hematocrit (blood only) 40.3 % (42.0-52.0); Hemoglobin 14.1 g/dl (14.0-18.0); Immature Granulocytes # (auto) 0.01 K/uL (0.01-0.20); Immature Granulocytes % (auto) 0.1 %; Mean Corpuscular Hemoglobin 29.2 pg (25.0-34.0); Mean Corpuscular Volume 83.4 fL (80.0-100.0); Platelet Count 238 K/uL (130-400); RDW Standard Deviation 36.4 fL (36.4-46.3); Red Blood Count 4.83 M/uL (4.70-6.10); White Blood Count 6.96 K/ul (4.8-10.8)
--- NOTE | 2025-03-29 08:00 | Hospitalist Progress Note ---
Date of Service March 29, 2025 Assessment & Plan (1) ST elevation: (2) Syncope: Plan Pt is a 29 yo male with no significant past med hx who presents from [facility] on 03/26 for an episode of syncope with activity, found to have ST segment elevation on ECG , cardiac cath unremarkable and is being admitted for monitoring after ICD implantation for Brugada Syndrome. #Syncopal episode #Brugada Syndrome -ICD implanted today. Updated his family about the procedure -Cardiology on board. Will watch him overnight today. -Plan to discharge tomorrow. VTE: low risk (Bianka score 0) ambulate as tolerated Pt is full code on admission. Admission and Anticipated Discharge Date Admission Date: March 26, 2025 Supervising Physician Co-Signing Physician Notes I personally examined the patient and verified romo points of history and exam, discussed case, and agree with decision making and plan documented by Dr. Hi. [place] spot worker [id number] utilized. Patient is a 29-year-old male with no known past medical history on admission for syncope. No events on telemetry. ICD implanted for prevention of sudden cardiac in setting of Brugada syndrome today. Patient with mild discomfort at insertion site, otherwise no complaints. has been updated in regard to successful procedure. Cardiology following. Anticipate discharge tomorrow. Subjective Patient reports doing well. Slept well overnight. No any overnight events, Denies any palpitation, light headedness , or feeling of passing out. Denies any new concerns. Talked to the patient using spot worker service. Review of Systems Review of Systems: Per HPI. Physical Exam Constitutional: WD/WN, vitals as above well developed; no acute distress Eyes: PERRL, conjunctivae normal, anicteric sclerae ENMT: external ear and nose normal, oropharynx normal Ears: no hearing impairment Neck: trachea midline, no thyromegaly trachea midline Respiratory: normal respiratory effort, lungs clear to auscultation normal respiratory effort and + respiratory distress; no labored breathing and no retractions Auscultation: lungs clear to auscultation bilaterally Cardiovascular: RRR, no murmur, no edema Rate/Rhythm: regular rate and regular rhythm Chest (Breasts): normal inspection/palpation of breasts Chest: normal inspection of chest Musculoskeletal: no cyanosis or clubbing, extremities motor strength 5/5 Results & Data Results & Data Vital Signs (Past 12 Hours) Vital Signs Temp Pulse Pulse Resp BP Pulse Ox O2 Del Method 03/29/25 07:20 36.9 C 73 14 124/74 97 Room Air 03/29/25 02:33 36.3 C L 57 L 18 118/74 95 Room Air 03/28/25 22:57 36.7 C 63 18 125/82 96 Room Air 03/28/25 22:08 62 Resident Activity Tracking Resident Involvement: Resident Care Provided Care Provided: Adult Hospital Medicine (2) Syncope Syncope type: unspecified Qualified Code(s): R55 - Syncope and collapse
--- NOTE | 2025-03-29 08:12 | Pre Anesthesia Assessment ---
Date of Service March 29, 2025 Pre Sedation Assessment Vital Signs Temp Pulse Pulse Resp BP Pulse Ox O2 Del Method 03/29/25 07:20 36.9 C 73 14 124/74 97 Room Air 03/29/25 02:33 36.3 C L 57 L 18 118/74 95 Room Air 03/28/25 22:57 36.7 C 63 18 125/82 96 Room Air 03/28/25 22:08 62 03/28/25 19:13 36.7 C 60 18 128/77 97 Room Air 03/28/25 16:00 66 03/28/25 15:58 36.9 C 68 16 116/78 96 Room Air 03/28/25 11:26 36.6 C 72 18 122/81 97 Room Air 03/28/25 08:27 64 Cardiovascular + regular rate and + regular rhythm Respiratory + respiratory effort normal Pre-Sedation Airway Assessment Smoking Status: Former smoker Hx Sleep Apnea: No Hx Difficult Intubation: No Short, Thick Neck: No Thyromental Distance: > or= 3.5 Finger Breadths Oral Cavity: + WNL Mallampati Class: III ASA: ASA2 NPO Status Date of Last Intake of Fluids: 03/29/25 Time of Last Intake of Fluids: 00:00 Date of Last Intake of Solid Food: 03/29/25 Time of Last Intake of Solid Foods: 00:00 Procedure Planning Contraindications for Sedation: none Current Medications Reviewed: Yes Notes The planned sedation has been discussed with the patient. Informed Consent was obtained. I have identified the patient, determined the appropriateness of sedation and have assessed the patient immediately prior to the procedure. All medicine(s) and interventions are by my order.
[2025-03-29] MEDS: VANCOMYCIN HCL 1000MG/20ML VIAL ONE (09:00)
[2025-03-29] MEDS: LIDOCAINE 1% LOCAL 20 ML VIAL ONE ×2 (09:00→09:02)
[2025-03-29] MEDS: BUPIVACAINE 0.25% PF 30 ML VIAL ONE (09:00)
[2025-03-29] MEDS: MIDAZOLAM HCL 5 MG/ML 1 ML VIAL ONE (09:01)
[2025-03-29] MEDS: ceFAZolin 330 MG/ML 1 GM VIAL ONE (09:01)
[2025-03-29] MEDS: diphenhydrAMINE 50 MG/ML VIAL ONE (09:01)
[2025-03-29] MEDS: WATER, STERILE FOR INJ 10 ML VIAL ONE (09:01)
--- NOTE | 2025-03-29 09:10 | Electrophysiology Report ---
Date of Service March 29, 2025 Electrophysiology Procedure Electrophysiology Procedure Report Procedure performed: Implantation of single-chamber ICD Staff show host or hostess: Billy Pedraza MD Indication: Patient is a 29-year-old gentleman who presented with an episode of syncope. He was noted on EKG to have a type I Brugada pattern. Based on his symptoms and EKG he was felt to be a good candidate for an ICD as secondary prevention against sudden cardiac . Procedure detail Patient was informed the risk benefits and alternatives to the intended procedure. He understood and wished to proceed. The patient speaks limited Serbian and a proprietary beekeeper farmer was used to describe the procedure, risks and alternatives. He was brought to the electrophysiology suite in a fasting state. Conscious sedation was administered per protocol and the patient was monitored electrocardiography throughout today's procedure. A preoperative antibiotic was administered. The left upper pectoral area was prepped and draped in usual sterile fashion. This area was anesthetized using subcutaneous ministration of lidocaine and Marcaine solution. An incision was made at the site and carried down to the prepectoralis fascia using sharp dissection. Electrocautery was also employed for dissection as well as for hemostasis. A device pocket was fashioned and the tissues above the pectoralis muscle. Subsequent to this maneuver the left axillary vein was accessed using modified center technique. A sheath was placed over guidewire at the site and used to facilitate passage of the ICD lead to the right ventricular apex under fluoroscopic guidance. Adequate sensing and threshold parameters were obtained prior to active-fixation of the lead to the endocardial surface. The proximal portion of the lead was then sutured to the prepectoralis fossa using nonabsorbable suture. Device pocket was irrigated with an antibiotic solution. The lead was attached to the device. The device and the were then placed in the pocket and the pocket was closed in 3 layers of absorbable suture. Steri-Strips and sterile dressing were applied. The device was tested noninvasively prior to inclusion the procedure. The patient tolerated procedure well. There were no immediate complications. Equipment used New pulse generator: Architectural Examiner [employer]. Model number [id number] serial number [id number] Right ventricular lead: Architectural Examiner [employer]. Model number 6935M serial number [id number] Measured data Right ventricular lead: R waves measured 15 mV. Pacing threshold was 0.75 V at 0.4 ms with a pacing impedance of 589 ohms Impression: Successful implantation of single-chamber ICD MNPG Electrophysiology codes ICD Procedure 1: ICD: 07300 Insert single or dual ICD system PG Moderate Sedation Codes Moderate Sedation Codes Procedure 1: Sedation/Anesthesia: 42597 Mod Sedation by the same physician;Init15 Min Child Age 5 & Up Procedure 2: Sedation/Anesthesia: 35380 Mod Sedation by the same physician; Ea [id number] Minutes
--- NOTE | 2025-03-29 09:10 | Post Anesthesia Assessment ---
Date of Service March 29, 2025 Post Sedation Assessment Vital Signs Temp Pulse Pulse Resp BP Pulse Ox O2 Del Method 03/29/25 09:03 56 L 03/29/25 07:20 36.9 C 73 14 124/74 97 Room Air 03/29/25 02:33 36.3 C L 57 L 18 118/74 95 Room Air 03/28/25 22:57 36.7 C 63 18 125/82 96 Room Air 03/28/25 22:08 62 03/28/25 19:13 36.7 C 60 18 128/77 97 Room Air 03/28/25 16:00 66 03/28/25 15:58 36.9 C 68 16 116/78 96 Room Air 03/28/25 11:26 36.6 C 72 18 122/81 97 Room Air Recovery Score Activity: Moves 4 extremities Respiration: Deep Breath/Cough Circulation: +/-20% PreAnes Value Consciousness: Arouseable (by name) Oxygen Saturation: O2 needed for >90% Post Anesthesia Score: 10 Discharge Sedation Level of Care: Fast Track Phase II Post Sedation Plan On clinical assessment, the patient appears to have tolerated the sedation without complications. Patient is recovering as anticipated. Patient will continue to be monitored by nursing and may be discharged when sedation discharge criteria are met per below protocol. Upon Completions of procedure up to 15 minutes continue every 5 minute vital signs and the P.A.R. score; then discharge to a Phase I or Fast Track to Phase II per the following guidelines: * Discharge Patient to appropriate Phase II area if PAR is 8 or greater or return to pre- procedure baseline. The post - procedure orders will be as directed. * If PAR score is less than 8 or not return to pre-procedure baseline then patient will follow Phase I monitoring till PAR is reached for Phase II. The Phase I may be done in procedure room or may call to secure a Phase I area. * If naloxone or flumazenil are used for reversal, hold in Phase I for continued monitoring from when last reversal dose was given for a minimum of 60 minutes or longer pending the nurse and/or physician discretion of patient condition before discharge to Phase II. Please call the Sedation Physician to re-evaluate and complete post-note for discharge to Phase II area. Do NOT discharge from procedure sedation or Phase 1 until post- sedation evaluation note is complete by procedure /sedation MD Sedation Discharge Instructions to be given to the patient at discharge to home.
[2025-03-29] MEDS: ACETAMINOPHEN 325 MG TAB PO PRN (15:49)
[2025-03-29 23:19] VITALS: O2SAT 96
--- NOTE | 2025-03-30 07:41 | XRay Report ---
EXAM: XR chest 2V PA/lateral CLINICAL HISTORY: EXACT TIME ORDERED Evaluate for pneumothorax and l TECHNIQUE: X-ray images of the chest were obtained in posteroanterior (PA) and lateral projections. COMPARISON: No prior studies available for comparison. FINDINGS: Pulmonary Parenchyma: Lungs are clear bilaterally. No evidence of consolidation, collapse, or focal opacities. No pulmonary nodules identified. No evidence of pleural effusion or pleural thickening. No penumothorax seen. Heart and Mediastinum: Heart size and shape are normal. Left single wire cardiac pacemaker with normal position of lead. No mediastinal widening or masses. No hilar or mediastinal lymphadenopathy. Bony Thorax: Bony thorax appears intact without fractures or deformities. Soft Tissues: Soft tissues overlying the chest wall are unremarkable. IMPRESSION: 1. Left single wire cardiac pacemaker with normal position of lead. 2. No hemothorax seen. 3. No acute cardiopulmonary abnormalities identified. Electronically signed by Pillo Cheng 03-30-2025 07:40 AM
--- NOTE | 2025-03-30 09:44 | Cardiology Progress Note ---
Date of Service March 30, 2025 Assessment & Plan (1) Syncope: (2) Brugada syndrome: Plan 1. Syncope: Unknown etiology. Possibly related to Brugada syndrome. ICD currently in place. Normal function without evidence of complication. 2. Brugada syndrome: Syncope with Brugada pattern. Now status post ICD implant. Patient is advised to treat any fevers promptly with antipyretics and avoid excessive alcohol intake. Start medicines may exacerbate Brugada and checking a proprietary database before prescription would be recommended (www.brugadadrugs.org). No activity restrictions. Admission and Anticipated Discharge Date Admission Date: March 26, 2025 Subjective No hourly sign language interpreter was available today. No history obtained. Physical Exam Physical Exam: Patient was alert and responsive. The implant site with some mild ecchymosis but no bleeding, hematoma or erythema Normal respiratory effort Results & Data Vital Signs (Past 12 Hours) Vital Signs Temp Pulse Resp BP Pulse Ox O2 Del Method 03/30/25 07:03 36.5 C 63 19 113/72 96 Room Air 03/30/25 03:11 36.6 C 66 18 116/68 96 Room Air 03/29/25 23:19 36.4 C L 73 18 118/72 96 Room Air Diagnostic Findings Chest x-ray obtained today revealed stable lead placement without pneumothorax. Device interrogation revealed good sensing and threshold parameters on the ventricular lead. Normal device function. (1) Syncope Syncope type: unspecified Qualified Code(s): R55 - Syncope and collapse
[2025-03-30 10:55] VITALS: BP 126/79; PULSE 72; RESP 20; TEMP 98.1
--- NOTE | 2025-03-30 15:45 | Discharge Summary ---
Date of Service March 30, 2025 Admission HPI Per Admitting Provider Pt is a 29 yo male with no significant past med hx who presents from [facility] on 03/26 for an episode of syncope with activity and found to have ST elevations on EKG. Pt seen briefly before cath and once again after cath procedure. Romanian voice health diagnostics teacher used, ID code [id number]. Pt is currently detained by ICE. Pt states this started initially in December. He states on January 09 he had an episode of feeling hot, sweaty, and like he could pass out. This happened again on February 05 and March 17. He states these episodes started in times of legal stress he has endured. He moved here with his 3 kids for a better life and has been very frustrated with the system. He states that today the episode was different. He was playing football(soccer) outside and when he went inside he started to get sweaty and hot and then passed out. No chest pain or SOB before or after. He denies any prior hx of an actual syncopal event. He denies any family hx of cardiac issues that he knows about. In the ED he was complaining of being cold a nd shivering but no other symptoms. After cath, he appeared more physically comfortable but he is emotionally overwhelmed. He states he would feel better if he could just talk to his family and hear his kids again. Admission Exam Per Admitting Provider Constitutional: WD/WN, vitals as above well developed; no acute distress Eyes: PERRL, conjunctivae normal, anicteric sclerae ENMT: external ear and nose normal, oropharynx normal Ears: no hearing impairment Neck: trachea midline, no thyromegaly trachea midline Respiratory: normal respiratory effort, lungs clear to auscultation normal respiratory effort and + respiratory distress; no labored breathing and no retractions Auscultation: lungs clear to auscultation bilaterally Cardiovascular: RRR, no murmur, no edema Rate/Rhythm: regular rate and regular rhythm Chest (Breasts): normal inspection/palpation of breasts Chest: normal inspection of chest Musculoskeletal: no cyanosis or clubbing, extremities motor strength 5/5 Principal Diagnosis 1. Brugada Syndrome Discharge Exam Constitutional WD/WN, vitals as above well developed; no acute distress Eyes PERRL, conjunctivae normal, anicteric sclerae ENMT external ear and nose normal, oropharynx normal Ears: no hearing impairment Neck trachea midline, no thyromegaly trachea midline Respiratory normal respiratory effort, lungs clear to auscultation normal respiratory effort and + respiratory distress; no labored breathing and no retractions Auscultation: lungs clear to auscultation bilaterally Cardiovascular RRR, no murmur, no edema Rate/Rhythm: regular rate and regular rhythm Chest (Breasts) normal inspection/palpation of breasts Chest: normal inspection of chest Musculoskeletal no cyanosis or clubbing, extremities motor strength 12/25 Discharge Data Consultations 03/26/25 14:41 ED Decision to Admit Stat 03/26/25 17:41 Consult Cardiology Routine Procedures Performed Operation Date: 03/29/25 08:00 Actual Procedures p ICD Insertion Single or Dual - Billy Pedraza MD Ordered Studies 03/26/25 13:49 CL Cath Imgs for PACS use only Stat 03/29/25 06:45 EP Lab Images for PACS ONCE Hospital Course (1) ST elevation: (2) Syncope: Plan Pt is a 29 yo male with no significant past med hx who presents from [facility] on 03/26 for an episode of syncope with activity, found to have ST segment elevation on ECG , cardiac cath unremarkable and is being admitted for monitoring after ICD implantation for Brugada Syndrome. #Syncopal episode #Brugada Syndrome -ICD implanted on 03/29. Updated his family about the procedure -Plan to discharge back today. -Followup with cardiology in the outpatient. Total Time Total Time Spent Total Time Spent (In Minutes): See attending attestation Discharge Plan Discharge Items [facility] Disposition[facility] Reason For Visit: STEMI Discharge Diagnosis: 1. Brugada Syndrome Condition on Discharge: Critical Activity: Per Instructions section Lifting Comment: No lifting left arm above shoulder behind neck for 6 weeks. Bathing Comment: Keep wound dry and Steri-Strips intact until follow-up in our clinic in 1 w Non-emergency contact: Primary Care Provider Call non-emergency contact if: you have any medication questions and your symptoms worsen Follow-up/Referrals: PCP,NO [Physician] - Diet: Regular Addtl Attending Provider Instructions: You presented to the hospital with Syncopal episode. On evaluation you were found to have a heart condition called Brugada Syndrome. It is a condition which can cause dangerous heart rhythm problems and may lead to Sudden Cardia . For this reason, a device called Implantable Cardiac Defibrillator was implanted in his heart. You don't need any medication for now to be taken on regular basis but make sure follow with cardiology in the outpatient. A discharge summary will be sent to your primary care physician to ensure continuity of care. Please bring this discharge summary with you to your next office appointment so that your provider can review it at that time. Follow-up appointments: Make a follow-up appointment with your PCP within the next week. It is very important that you follow up with them shortly after discharge from the hospital.] Please make sure to follow up with cardiology in the outpatient. CONTACT YOUR PRIMARY CARE PROVIDER if you experience any of the following: Severe chest pain, palpitation or syncopal episode Difficulty following your treatment plan, or difficulty taking medications CALL 911 OR GO TO THE EMERGENCY DEPARTMENT if you experience any of the following: Sudden, severe abdominal pain or nausea/vomiting Severe chest pain, or chest pain that radiates (moves) to your jaw or arm Sudden, severe shortness of breath or difficulty breathing Thank you for allowing us to participate in your care. . Pending Studies at Discharge: No Stand-Alone Forms: My [facility] Sk[facility] Items Patient informed of condition?: Yes Discharge Level of Care: Other Communicable Disease: No Discharge Prognosis: Stable Lines: None Urinary Catheter: No Medications and DC Order Discharge Orders: Discharge Order (Routine); Ordered 03/30/25 Ordered By: Cookie Hi Admission Data Admit Date/Time: 03/26/25 15:19 Attending Provider: Billy De La Garza Admit Provider: Yelena Laird Primary Care Provider: [facility] Other Providers: Dennis Rossi; Shelley Lacey; Billy Pedraza Other Interventions: Discharge Summary Assessment (RN) Last Done: 03/30/25 14:58 Supervising Physician Co-Signing Physician Notes Attending attestation Pt seen and examined in concert with Dr. Hi. In agreement with the documented findings as noted in the resident documentation with any exceptions or additions as noted here. Saw Man line used. Patient resting comfortably in bed without acute complaint. Reviewed current status, management of brugada and need for follow up once discharged and questions answered. VS as noted. On examination S1/S2 nl RRR no MCG. CTAB. Abd NT/ND BS+ve Brugada syndrome s/p ICD implantation - cardiology consult appreciated - okay to discharge with cardiology follow up and encourage routine primary care with precautions for worsening/changing sx. Else see resident documentation as noted. Total attending physician time spent with this patient's care on the day of discharge: 38 minutes. Resident Activity Tracking Resident Involvement: Resident Care Provided Care Provided: Adult Hospital Medicine
== END 2025-03-30 16:18 | DRG 277 ==
LOC: ED 13:52 → CC 14:27 → SUATTDRO 15:19 → 4W 16:09
PROC: EPB.ICD (2025-03-29 08:00)